=== PATIENT | male | born 1975 | race Caucasian/White ===

== ENCOUNTER 2017-05-25 12:54 | Emergency (ER) | payer BC ==
[~2017-05-25] VITALS: Ht 190.5 cm; Wt 105.3 kg
[~2017-05-25 12:54] MED LIST: NEPA0.6D OPR; PRED1SUS3 OPR; TMPXEOPS OPR
[2017-05-25 12:56] VITALS: TEMP 36.5; Ht 190.5 cm; Wt 105.3 kg
--- NOTE | 2017-05-25 13:35 | EMERGENCY ROOM VISIT NOTE ---
ED Visit Note First contact with patient: 13:10 CHIEF COMPLAINT: Facial laceration HISTORY OF PRESENT ILLNESS: This 41-year-old male patient presents emergency department complaining of a laceration to the forehead. Patient states he was playing basketball, when he ran into another player while jumping. He states he hit his forehead against possibly their teeth, and now reports laceration of the forehead. There was no loss of consciousness, vomiting, or unusual behavior afterwards. Denies neck pain. No headache, nausea, or blurred vision. There is mild active bleeding. The patient rates the pain as sharp and 5/10. The patient's tetanus shot is up to date. The patient is not on blood thinners. REVIEW OF SYSTEMS: A 6 system review of systems was completed with positives and pertinent negatives listed in the HPI. ALLERGIES: None MEDICATIONS: None PMH: None SOCIAL HISTORY: Patient lives locally with family. He denies alcohol, tobacco, drug use. Pt. is currently employed. PHYSICAL EXAM: Vital Signs: Reviewed Nurse's notes, vital signs stable. GENERAL : 41-year-old male, in no acute distress, well-developed, well-nourished. NEURO : The patient is alert and oriented to person place and time. No focal neurological defects. EYES: Pupils are round, equal, and react to light. EOMI. EARS: No hemotympanum. NECK: Supple. No cervical spine tenderness. FACE: No facial bone tenderness or mandibular tenderness. The mouth can open fully. The teeth are well aligned. No loose or chipped teeth. SKIN: There is a 2 cm laceration just right of midline on the forehead. The edges gape apart with traction. There is minimal active bleeding and no foreign material in the wound. There are no deep structures present. Capillary refill <2 seconds. Normal sensation to light and sharp touch. EMERGENCY DEPARTMENT COURSE: I examined the patient. Verbal consent was obtained to perform the procedure. Using sterile technique the wound was cleansed with Betadine. The area was sterilely draped. 7 ml of 1% lidocaine with epinephrine was used to anesthetize the laceration on the face. Once the patient was anesthetized, the wound was copiously irrigated under pressure with sterile saline. The wound was explored and was as described above. The laceration was repaired using 8 simple interrupted 6-0 nylon sutures with the wound edges being well approximated. The patient tolerated the procedure well. Hemostasis was achieved. The area was cleaned with sterile saline and dressed with bacitracin ointment. The patient was discharged home in good condition. DIAGNOSIS: Facial laceration DIFFERENTIAL DIAGNOSIS: Concussion, subdural hematoma, epidural hematoma, and others. DISCHARGE INSTRUCTIONS: You have received 8 sutures on your forehead. These sutures are NOT dissolvable and WILL need to be removed by a health care provider in 5-7 days. You can return to the Emergency Department or contact your Primary Care Provider to have the sutures removed. Proper wound care is essential for adequate wound healing and infection prevention. You can shower and clean the wound with soap and water. Do not scour over the wound, pat dry with a towel. Do not submerse the wound (i.e. bathe or dish wash) until the sutures have been removed. You can use an antibiotic ointment with a dressing over the wound for the next 3-4 days. After this time you may leave the wound dry and open to the air. If crust develops over the wound you can use a Q-tip to apply a 1:1 peroxide:water solution to clean the wound. Look for signs of infection of the wound including: increased pain, swelling, foul discharge, streaking, or increased temperature. If any of these are noticed you should return to the Emergency Department for further assessment and treatment. As with any laceration you may have received nerve damage to the surrounding tissues. This damage may or may not be permanent. You should keep the area covered with sunscreen for the first 6 months to 1 year when at risk for exposure to help minimize scarring. You can also use scar reducing creams or Vitamin E oil to help minimize scarring. For pain control, you can use the following zgje-hmd-[id number] medicines (if >12 yo): - Regular strength (325mg/tab) Tylenol (acetaminophen) 2 tabs every 4-6 hours as needed. Do not exceed 12 tablets in a 24 hour period. Avoid taking more than 4 grams (4000 mg) of Tylenol per day. This includes any other sources of acetaminophen you may take on a regular basis. - Regular strength (200 mg/tab) Advil (ibuprofen) 1-2 tabs every 4-6 hours as needed. Do not exceed a dose of 3200 mg per day. Return to the emergency department if your symptoms worsen despite treatment course outlined above. Please follow-up with your primary care provider in 3-5 days for reevaluation of injury and determination for suture removal. Current/Historical Medications No Active Prescriptions or Reported Meds Allergies Coded Allergies: No Known Allergies (Unverified , 12/26/13) Vital Signs Date Time Temp Pulse Resp B/P (MAP) Pulse Ox O2 Delivery O2 Flow Rate FiO2 05/25/17 14:24 90 20 124/95 94 05/25/17 12:56 36.5 88 20 145/98 94 Room Air Departure Information Impression Primary Impression: Facial laceration Dispostion Home / Self-Care Condition GOOD Prescriptions No Active Prescriptions or Reported Meds Referrals Kee Herrera M.D. (PCP) Patient Instructions [facility] Additional Instructions You have received 8 sutures on your forehead. These sutures are NOT dissolvable and WILL need to be removed by a health care provider in 5-7 days. You can return to the Emergency Department or contact your Primary Care Provider to have the sutures removed. Proper wound care is essential for adequate wound healing and infection prevention. You can shower and clean the wound with soap and water. Do not scour over the wound, pat dry with a towel. Do not submerse the wound (i.e. bathe or dish wash) until the sutures have been removed. You can use an antibiotic ointment with a dressing over the wound for the next 3-4 days. After this time you may leave the wound dry and open to the air. If crust develops over the wound you can use a Q-tip to apply a 1:1 peroxide:water solution to clean the wound. Look for signs of infection of the wound including: increased pain, swelling, foul discharge, streaking, or increased temperature. If any of these are noticed you should return to the Emergency Department for further assessment and treatment. As with any laceration you may have received nerve damage to the surrounding tissues. This damage may or may not be permanent. You should keep the area covered with sunscreen for the first 6 months to 1 year when at risk for exposure to help minimize scarring. You can also use scar reducing creams or Vitamin E oil to help minimize scarring. For pain control, you can use the following yjme-tuc-sgqtsrm medicines (if >12 yo): - Regular strength (325mg/tab) Tylenol (acetaminophen) 2 tabs every 4-6 hours as needed. Do not exceed 12 tablets in a 24 hour period. Avoid taking more than 4 grams (4000 mg) of Tylenol per day. This includes any other sources of acetaminophen you may take on a regular basis. - Regular strength (200 mg/tab) Advil (ibuprofen) 1-2 tabs every 4-6 hours as needed. Do not exceed a dose of 3200 mg per day. Return to the emergency department if your symptoms worsen despite treatment course outlined above. Please follow-up with your primary care provider in 3-5 days for reevaluation of injury and determination for suture removal. Problem Qualifiers Primary Impression: Facial laceration Encounter type: initial encounter Qualified Codes: S01.81XA - Laceration without foreign body of other part of head, initial encounter
[2017-05-25] MEDS ORDERED: LIDOCAINE/EPINEPHRINE 1% 20 ML VIAL INFIL ONE (13:45)
[2017-05-25 14:24] VITALS: BP 124/95; PULSE 90; O2SAT 94
== END 2017-05-25 14:24 | disposition home or self-care (01) ==
LOC: C.EDB 12:55 → C.EDD 14:24
DX: S01.81XA Laceration without foreign body of other part of head, initial encounter (principal); W50.0XXA Accidental hit or strike by another person, initial encounter; Y93.67 Activity, basketball

== ENCOUNTER 2017-05-30 13:22 | Emergency (ER) | payer BC | END 2017-05-30 13:35 | disposition left against medical advice (07) | LOC: C.EDB 13:24 | DX: Z48.02 Encounter for removal of sutures (principal) ==

== ENCOUNTER 2017-05-30 15:16 | Emergency (ER) | payer BC ==
[~2017-05-30] VITALS: Ht 190.5 cm; Wt 105.1 kg
[2017-05-30 15:24] VITALS: BP 113/76; PULSE 83; TEMP 36.7; O2SAT 95; Ht 190.5 cm; Wt 105.1 kg
--- NOTE | 2017-05-30 15:34 | EMERGENCY ROOM VISIT NOTE ---
ED Visit Note First contact with patient: 15:30 CHIEF COMPLAINT: Suture removal This patient returns to the ED today for removal of sutures that were placed on May 25 . There has been no swelling, redness, or drainage from the wound. The patient feels like the laceration is healing well. REVIEW OF SYSTEMS: Head: No headache, injury or neck pain. Skin: No rash, new lesions, or masses. General: No fever or chills, fatigue, loss of appetite , or significant recent weight gain or loss. PMH: Otherwise healthy SOCIAL HISTORY: Patient lives at home. PHYSICAL EXAM: Vital Signs: Reviewed Nurse's notes. There is a sutured wound on the forehead with no signs of infection. There is no erythema, swelling, or tenderness. EMERGENCY DEPARTMENT COURSE: The sutures were removed without any difficulty and there was no separation of the wound edges. DIAGNOSIS: Healing laceration and suture removal DISCHARGE INSTRUCTIONS AND TREATMENT: Wash any remaining crusts off of the wound today and resume your normal activities.
== END 2017-05-30 15:52 | disposition home or self-care (01) ==
LOC: C.EDB 15:17 → C.EDD 15:52
DX: S01.81XD Laceration without foreign body of other part of head, subsequent encounter (principal); X58.XXXD Exposure to other specified factors, subsequent encounter